=== PATIENT | female | born 1990 | race African-American/Black ===

== ENCOUNTER → 2020-05-17 11:03 | Outpatient (CLI) | payer OTHER, SELFPAY ==
[2020-05-17 13:14] LABS: HCG Quantitative /Beta subunit 11434 mIU/mL
== END ==
PROVIDERS: Referring Provider Specialist; Visit Provider Specialist
DX: O20.9 Hemorrhage in early pregnancy, unspecified (principal)
CPT/HCPCS: 36415; 84702

== ENCOUNTER → 2020-06-17 17:19 | Outpatient (CLI) | payer OTHER, SELFPAY ==
[2020-06-17 18:01] LABS: Add Manual Diff / Slide Review NO; Basophils Absolute Auto 0 /uL (0-100); Basophils Percent Auto 0.4 % (0-2); Eosinophils Absolute Auto 100 /uL (0-450); Eosinophils Percent Auto 1.5 % (2-4); Hematocrit 33.6 % (36-46); Hemoglobin 11.2 g/dL (12.0-16.0); Lymphocytes Absolute Auto 1800 /uL (1100-4500); Lymphocytes Percent Auto 20.7 % (25-40); Mean Corpuscular HGB Conc 33.3 % (30-36); Mean Corpuscular Hemoglobin 26.8 PG (26-34); Mean Corpuscular Volume 80.5 fL (80-100); Monocytes Absolute Auto 600 /uL (0-900); Monocytes Percent Auto 7.3 % (3-14); Neutrophils Absolute Auto 6000 /uL (1500-7000); Neutrophils Percent Auto 70.1 % (50-75); Platelet Count 292 X10^3/uL (150-400); Red Blood Cell Count 4.17 X10^6/uL (4.0-5.2); Red Cell Distribution Width 13.6 % (11.6-14.8); White Blood Cell Count 8.5 X10^3/uL (4.5-11.0)
[2020-06-17 18:12] LABS: Appearance Urine UA CLEAR; Bilirubin Urine UA NEGATIVE (NEGATIVE); Color Urine UA YELLOW; Glucose Urine UA NEGATIVE (Negative); Hemoglobin A1C% w Est Avg Glu 5.3 % (4.0-6.0); Ketones Urine UA NEGATIVE (NEGATIVE); Leukocyte Esterase Urine UA NEGATIVE (NEGATIVE); Nitrite Urine UA NEGATIVE (Negative); Occult Blood Urine UA NEGATIVE (Negative); Protein Urine UA NEGATIVE (Negative); Urobilinogen Urine UA 0.2 E.U./dL (0.2)
[2020-06-17 18:16] LABS: Glucose 103 mg/dL (70-100)
[2020-06-17 18:50] LABS: Hepatitis B Surface Antigen NEGATIVE s/c (NEGATIVE); Rubella Antibody IgG 16.9 IU/mL (>15)
[2020-06-17 19:17] LABS: HIV 1 & 2 Ab/Ag 4th Gen Combo NEGATIVE (NEGATIVE); Hep C Virus Ab w/Reflex Quant NEGATIVE s/c (NEGATIVE)
[2020-06-18 08:13] LABS: RPR Screen Non Reactive (Non Reactive); Varicella IgG Antibody 522 index (Immune >165)
== END ==
PROVIDERS: Referring Provider Specialist; Visit Provider Specialist
DX: Z34.01 Encounter for supervision of normal first pregnancy, first trimester (principal)
CPT/HCPCS: 36415; 80055; 81003; 82947; 83036; 86787; 86803; 86850; 86900; 86901; 87086; 87389

== ENCOUNTER → 2020-08-30 14:47 | Outpatient (CLI) | payer OTHER, SELFPAY ==
--- NOTE | 2020-08-30 14:50 | DI.US.S_ITS ---
PROCEDURE: US OB >= 14 WEEKS FETUS INDICATIONS: ANATOMY OUTSIDE/PRIOR DATING DATA: Last menstrual period (LMP): 04/03/2020 . LMP-based estimated date of delivery (ASIF): 01/08/2021 . First dating scan (date and location): 08/30/2020 . Estimated date of delivery (ASIF) from first dating scan: 01/09/2021 . TECHNIQUE: Real-time scanning was performed of the fetus, with image documentation and biometric measurements. Endovaginal scanning: No COMPARISON: [facility], , OB <= 14 WEEKS FETUS, 06/17/2020, 16:46. FINDINGS: Evaluation is limited by maternal body habitus. General: A single living intrauterine gestation is present. Presentation: Variable. Placenta: Placental position is posterior , without previa. Amniotic fluid index: 19.4 cm, normal range is 5-24 cm. heart rate: 147 beats per minute. Maternal cervical canal: 3.5 cm long. Normal lower limit is 2.5 cm. biometrics: Biparietal diameter: 51 mm; 21 weeks 3 days Head circumference: 189 mm; 21 weeks 1 day Abdominal circumference: 164 mm; 21 weeks 3 days Femur length: 34 mm; 20 weeks 5 days Estimated gestational age from initial scan: 21 weeks 2 days Composite gestational age from present scan: 21 weeks 1 day Estimated weight and percentile: 401 g, which is at the 36th percentile for gestational age Measurement variability for biometric dating: +/- 7 days from 14 weeks to 15 weeks 6 days gestation, +/- 10 days from 16 weeks to 21 weeks 6 days gestation, +/- 2 weeks from 22 weeks to 27 weeks 6 days gestation, +/- 3 weeks for 28 weeks gestation or later. weight reference: 4500 g or EFW >90/95% is considered macrosomia or large for gestational age. EFW <10% is small for gestational age. EFW 5% or less is considered intra-uterine growth restriction. Anatomic survey: Neuro: Ventricles are non-dilated at less than 10 mm. Cisterna magna and cerebellum are not well seen. Nuchal skin fold: Not well seen Face: Nose and lips, facial profile are normal. Spine: Cervical spine is not well seen. Heart: Not well seen Diaphragm: Diaphragm is intact. Stomach: Left-sided stomach is present. Kidneys: No hydronephrosis. Normal is less than 5 mm in 2nd trimester, less than 7 mm in 3rd trimester. Cord: 3-vessel cord has orthotopic insertion. Bladder: Normal in size. Extremities: All 4 extremities identified. IMPRESSION: 1. Single living intrauterine gestation. 2. Limited normal survey of anatomy. Dictated by: Suad Joyce M.D. on 08/30/2020 at 16:39 Approved by: Suad Joyce M.D. on 08/30/2020 at 16:51
== END ==
PROVIDERS: Referring Provider Specialist; Visit Provider Specialist
DX: Z34.02 Encounter for supervision of normal first pregnancy, second trimester (principal); Z3A.21 21 weeks gestation of pregnancy
CPT/HCPCS: 76811

== ENCOUNTER → 2020-09-12 14:36 | Outpatient (CLI) | payer OTHER, SELFPAY ==
--- NOTE | 2020-09-12 14:37 | DI.US.S_ITS ---
PROCEDURE: US OB FOLLOW UP INDICATIONS: FOLLOW UP INCOMPLETE ANATOMY SCAN OUTSIDE/PRIOR DATING DATA: Last menstrual period (LMP): 04/03/2020 LMP-based estimated date of delivery (ASIF): 01/08/2021 First dating scan (date and location): 08/30/2020 Estimated date of delivery (ASIF) from first dating scan: 01/09/2021 TECHNIQUE: Real-time scanning was performed of the fetus, with image documentation. Endovaginal scanning: No COMPARISON: [facility], OB >= 14 WEEKS FETUS, 08/30/2020, 15:07. FINDINGS: A single living intrauterine gestation is present. Presentation: Cephalic. Placenta: Placental position is posterior , without previa. Amniotic fluid index: 17.8 cm, normal range is 5-24 cm. heart rate: 158 beats per minute. Maternal cervical canal: 5 cm long. Normal lower limit is 2.5 cm. Estimated gestational age from initial scan: 23 weeks 0 days . Survey of anatomy currently includes normal nuchal region/neck, cisterna magna/cerebellum, 4 chamber heart view, and left and right ventricular outflow tracts. IMPRESSION: 1. Single living intrauterine gestation. 2. Normal limited survey of anatomy. Dictated by: Suad Joyce M.D. on 09/12/2020 at 15:01 Approved by: Suad Joyce M.D. on 09/12/2020 at 15:03
== END ==
PROVIDERS: Referring Provider Specialist; Visit Provider Specialist
DX: Z36.2 Encounter for other antenatal screening follow-up (principal); Z3A.23 23 weeks gestation of pregnancy
CPT/HCPCS: 76816

== ENCOUNTER → 2020-09-29 10:50 | Outpatient (CLI) | payer OTHER, SELFPAY ==
[2020-09-29 12:46] LABS: Hematocrit 35.3 % (36-46); Hemoglobin 11.3 g/dL (12.0-16.0)
[2020-09-29 13:10] LABS: GTT (PREG) 1 Hour PP 50gm Dose 109 mg/dL (76-139)
== END ==
PROVIDERS: Referring Provider Specialist; Visit Provider Specialist
DX: O26.899 Other specified pregnancy related conditions, unspecified trimester (principal); Z67.91 Unspecified blood type, Rh negative; Z3A.26 26 weeks gestation of pregnancy
CPT/HCPCS: 36415; 82950; 85014; 85018; 86850

== ENCOUNTER 2020-12-15 14:17 | Outpatient (CLI) | payer OTHER, SELFPAY ==
--- NOTE | 2020-12-15 15:26 | PM.OBTRLD ---
Visit Information Visit Information Date of evaluation: 12/15/20 Primary OB Provider: Susana Whiting Reason for Evaluation: Yes non-stress test non-stress test reason: other (Lower abdominal pain rule out labor) [facility] Medical History (Updated 12/15/20 @ 15:27 by Susana Whiting MD) Acid reflux Anxiety (~2019) Asthma (~1995) Bipolar 1 disorder (~2019) Bronchitis Depression (~2019) Ear infection Eczema (~2000) Generalized headaches History of being hospitalized Irregular menstrual cycle Manic episode Neutropenia Nexplanon removal (~03/03/20) Ovarian cyst Painful menstrual periods PTSD (post-traumatic stress disorder) Seizures UTI (urinary tract infection) Surgical History (Updated 06/14/20 @ 18:51 by Lisa Norris) Nexplanon insertion (~2015) No history of previous surgery Family History (Updated 06/14/20 @ 18:54 by Lisa Norris) Mother Obesity Cardiac anomaly History of heart disease Hypertension Hyperlipidemia Mental health problem Father Family estrangement Grandmother Cardiac anomaly Obesity History of heart disease Hyperlipidemia Hypertension Grandfather Family estrangement Grandmother Family estrangement Grandfather Family estrangement Family/Other Mental health problem Sister ADHD Family/Other Twin Sister Mental health problem Social History marital status: household members: spouse lives independently: Yes pets and animals: Yes (X 3 dogs) education level: college occupational status: unemployed current occupational exposures/hazards: No 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; 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; 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; [employer]; 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 Patient reassured OB Disposition: home
== END 2020-12-15 15:25 | disposition home or self-care (01) ==
LOC: LABOR 14:45 → OB 12-20 01:30
PROVIDERS: Referring Provider Specialist; Visit Provider Specialist
DX: O26.893 Other specified pregnancy related conditions, third trimester (principal); R10.30 Lower abdominal pain, unspecified; Z3A.36 36 weeks gestation of pregnancy
CPT/HCPCS: 59025; 87653; G0378; G0379

== ENCOUNTER 2021-01-11 11:58 | Outpatient (CLI) | payer OTHER, SELFPAY | END 2021-01-11 12:35 | disposition home or self-care (01) | LOC: OB 01-17 03:45 | PROVIDERS: Referring Provider Specialist; Visit Provider Specialist | DX: O48.0 Post-term pregnancy (principal); Z3A.40 40 weeks gestation of pregnancy | CPT/HCPCS: 59025; G0378; G0379 ==

== ENCOUNTER 2021-01-15 10:05 | Outpatient (CLI) | payer OTHER, SELFPAY ==
--- NOTE | 2021-01-15 10:24 | PM.OBTRLD ---
Visit Information Visit Information Date of evaluation: 01/15/21 Primary OB Provider: Susana Whiting On-call OB Provider: Meli Amaro Reason for Evaluation: Yes non-stress test non-stress test reason: other (post-dates) Vital Signs Vital Signs: BP 115/69mmHg, HR 83bpm, T 36.3C Temporal PFSH Medical History Acid reflux Anxiety (~2019) Asthma (~1995) Bipolar 1 disorder (~2019) Bronchitis Depression (~2019) Ear infection Eczema (~2000) Generalized headaches History of being hospitalized Irregular menstrual cycle Manic episode Neutropenia Nexplanon removal (~03/03/20) Ovarian cyst Painful menstrual periods PTSD (post-traumatic stress disorder) Seizures UTI (urinary tract infection) Surgical History Nexplanon insertion (~2015) No history of previous surgery Family History Mother Obesity Cardiac anomaly History of heart disease Hypertension Hyperlipidemia Mental health problem Father Family estrangement Grandmother Cardiac anomaly Obesity History of heart disease Hyperlipidemia Hypertension Grandfather Family estrangement Grandmother Family estrangement Grandfather Family estrangement Family/Other Mental health problem Sister ADHD Family/Other Twin Sister Mental health problem Social History marital status: household members: spouse lives independently: Yes pets and animals: Yes (X 3 dogs) education level: college occupational status: unemployed current occupational exposures/hazards: No 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; 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; 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; [employer]; 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; 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: 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 F/U for IOL 01/17/21, as scheduled. OB Disposition: home
== END 2021-01-15 11:05 | disposition home or self-care (01) ==
LOC: OB 01-17 03:50
PROVIDERS: Referring Provider Nurse Practitioner Obstetrics & Gynecology; Visit Provider Nurse Practitioner Obstetrics & Gynecology
DX: O48.0 Post-term pregnancy (principal); Z3A.41 41 weeks gestation of pregnancy
CPT/HCPCS: 59025; G0378; G0379

== ENCOUNTER 2021-01-17 19:00 | Inpatient (IN) | payer OTHER, SELFPAY ==
[2021-01-17 21:37] VITALS: BP 112/71
[2021-01-17] MEDS: DINOPROSTONE VAG (CERVIDIL) 10 MG VAG (22:30)
[2021-01-17 23:52] LABS: Add Manual Diff / Slide Review NO; Basophils Absolute Auto 0 /uL (0-100); Basophils Percent Auto 0.5 % (0-2); Eosinophils Absolute Auto 0 /uL (0-450); Eosinophils Percent Auto 0.4 % (2-4); Hematocrit 35.2 % (36-46); Hemoglobin 11.5 g/dL (12.0-16.0); Lymphocytes Absolute Auto 1700 /uL (1100-4500); Lymphocytes Percent Auto 17.2 % (25-40); Mean Corpuscular HGB Conc 32.6 % (30-36); Mean Corpuscular Hemoglobin 26.1 PG (26-34); Mean Corpuscular Volume 80.1 fL (80-100); Monocytes Absolute Auto 800 /uL (0-900); Monocytes Percent Auto 8.6 % (3-14); Neutrophils Absolute Auto 7100 /uL (1500-7000); Neutrophils Percent Auto 73.3 % (50-75); Platelet Count 281 X10^3/uL (150-400); Red Blood Cell Count 4.39 X10^6/uL (4.0-5.2); Red Cell Distribution Width 15.8 % (11.6-14.8); White Blood Cell Count 9.7 X10^3/uL (4.5-11.0)
[2021-01-18 00:02] LABS: COVID19 -Nasal RAPID Negative (Negative)
[2021-01-18] MEDS: ZOLPIDEM 5 MG TABLET PO (01:00)
[2021-01-18] MEDS: hydrOXYzine pamoate 25 MG CAPSULE PO (01:03)
--- NOTE | 2021-01-18 08:03 | PM.OBHP.1 ---
OB HPI Date/Time Date of admission: 01/17/21 Date Patient Seen: 01/18/21 Time Patient Seen: 08:03 History of Present Condition Chief complaint: : 1 Para: 0 Estimated Date of Delivery: 01/08/21 Estimated Gestational Age (weeks): 41 Narrative: Geneva Rachel is a 30 year old female admitted for postdates induction Indications Indication for induction OB: post dates History of Present care: good care, initiated at week # (6), number of visits (16) and pounds weight gain (34) Ultrasounds: normal mid trimester US Obstetrical complications: none Medical complications: none Preadmission Labs Blood type: 0 (-) negative -: Antibody screen: negative, GBS status: negative, HBsAG: negative, HIV: negative and RPR/VDLR: negative -: Chlamydia screen: not detected and Gonorrhea screen: not detected -: Rubella: immune and Varicella: immune HCAB: negative 1 hr GTT: 109 Evaluation Evaluation Baseline heart rate: 130 Variability: Moderate (11-25) monitor accelerations: Present Monitor Decelerations: Periodic Contraction Frequency (minutes): 5 Uterine Contraction Intensity: Mild Category of Tracing: Reactive Status: Category ll Dilation (cm): 0 Effacement (%): 60 Dilation: Closed Effacement: 60-70% station: -1 Position of cervix: mid Consistency: medium Latif score: 6 PFSH Medical History Acid reflux Anxiety (~2019) Asthma (~1995) Bipolar 1 disorder (~2019) Bronchitis Depression (~2019) Ear infection Eczema (~2000) Generalized headaches History of being hospitalized Irregular menstrual cycle Manic episode Neutropenia Nexplanon removal (~03/03/20) Ovarian cyst Painful menstrual periods PTSD (post-traumatic stress disorder) Seizures UTI (urinary tract infection) Surgical History Nexplanon insertion (~2015) No history of previous surgery Family History Mother Obesity Cardiac anomaly History of heart disease Hypertension Hyperlipidemia Mental health problem Father Family estrangement Grandmother Cardiac anomaly Obesity History of heart disease Hyperlipidemia Hypertension Grandfather Family estrangement Grandmother Family estrangement Grandfather Family estrangement Family/Other Mental health problem Sister ADHD Family/Other Twin Sister Mental health problem Social History marital status: household members: spouse lives independently: Yes pets and animals: Yes (X 3 dogs) education level: college occupational status: unemployed current occupational exposures/hazards: No 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; 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; 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; [employer]; 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; 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/hindu: Gnosticism special huong needs: No Smoking Status: Never smoker second hand exposure: No (growing up - not lately) alcohol intake: former substance use type: does not use and marijuana Meds Home Medications and Allergies Home Medications Medication Instructions Recorded Confirmed Type clonidine HCl 0.2 mg tablet 0.2 mg PO BEDTIME 05/16/20 01/05/21 History prenat.vits,mary,jue-eent-odjcj 1 tab PO DAILY 05/16/20 01/05/21 History folate PO 06/03/20 01/05/21 History albuterol sulfate 90 mcg/actuation 2 puff INHALATION Q6H PRN 06/06/20 01/05/21 History aerosol inhaler lamotrigine 100 mg tablet 150 mg PO DAILY tab 12/29/20 01/05/21 History Allergies Allergy/AdvReac Type Severity Reaction Status Date / Time amoxicillin Allergy Severe Anaphylaxis Verified 05/19/20 10:40 Penicillins Allergy Severe Anaphylaxis Verified 05/19/20 10:40 Sulfa (Sulfonamide Allergy Unknown throat Verified 05/19/20 10:40 Antibiotics) swelling, hives lavender (Lavandula AdvReac Intermediate Itchy Verified 06/06/20 10:31 angustifolia) throat and rash to skin Review of Systems Review of Systems Narrative: Patient denies headaches, scotomata, epigastric pain. Good movement. No leakage of fluid. OB Exam Narrative Exam Narrative: Blood pressure 126/53, pulse 71, temperature 36.2? HEENT exam within normal limits. Lungs are clear to auscultation percussion. Heart is regular rate and rhythm no S3-S4 murmurs. Abdomen is soft, nontender. Fetus is vertex. Extremities without edema and nontender Objective Labs Result Diagrams: 01/17/21 21:35 Labs: Laboratory Results - last 24 hr 11/30/21 11/30/21 11/30/21 21:35 21:35 21:35 WBC 9.7 RBC 4.39 Hgb 11.5 L Hct 35.2 L MCV 80.1 MCH 26.1 MCHC 32.6 RDW 15.8 H Plt Count 281 Neut % (Auto) 73.3 Lymph % (Auto) 17.2 L [place] % (Auto) 8.6 Eos % (Auto) 0.4 L Baso % (Auto) 0.5 Neut # (Auto) 7100 H Lymph # (Auto) 1700 [place] # (Auto) 800 Eos # (Auto) 0 Baso # (Auto) 0 SARS-CoV-2 (PCR) Negative Antibody Screen Negative Assessment and Plan Assessment and Plan Assessment and Plan narrative: 41 3/7 weeks gestation admitted for induction. Patient received the Cervidil overnight. We will start Pitocin today.
[2021-01-18] MEDS: LACTATED RINGERS 1,000 ML 100 ML IV (10:24)
[2021-01-18] MEDS: OXYTOCIN PREMIX 30 UNIT/500 ML PLAST..BAG IV (10:24)
--- NOTE | 2021-01-18 16:33 | PM.OBPNLAB ---
Date/Time Date Patient Seen: 01/18/21 Time Patient Seen: 16:34 Pain Control Pain control: tolerating well Pelvic Exam Dilation (cm): 0 Effacement (%): 80 station: -1 Contractions Contractions on admission: regular Monitor mode: External Pitocin rate (mU/min): 24 Contraction frequency (min): 3 Contraction duration (min): 1 Contraction pattern: Regular Contraction intensity: Moderate Status status: Category l Heart Rate Baseline: 130 Monitor Accelerations: Present Monitor Decelerations: Absent Monitor Variability: Moderate Assessment and Plan Assessment: induction ongoing Comments: Patient with no significant change after over 6 hours of Pitocin on 24 units. Options reviewed with the patient. We will stop the Pitocin and retry Cervidil tonight and restart Pitocin in a.m. if not in active labor.
[2021-01-18] MEDS: DINOPROSTONE VAG (CERVIDIL) 10 MG VAG (20:26)
[2021-01-19] MEDS: LORATADINE 10 MG TABLET PO (06:56)
--- NOTE | 2021-01-19 08:45 | PM.OBPNLAB ---
Date/Time Date Patient Seen: 01/19/21 Time Patient Seen: 08:00 Pain Control Pain control: tolerating well Pelvic Exam Dilation (cm): 0 Effacement (%): 80 station: -1 Contractions Monitor mode: External Contraction frequency (min): 8 Contraction pattern: Regular Contraction intensity: Mild Status status: Category l Heart Rate Baseline: 140 Monitor Accelerations: Present Monitor Decelerations: Absent Monitor Variability: Moderate Assessment and Plan Assessment: induction ongoing Comments: Will restart Pitocin
[2021-01-19] MEDS: OXYTOCIN PREMIX 30 UNIT/500 ML PLAST..BAG IV (08:52)
[2021-01-19] MEDS: LACTATED RINGERS 1,000 ML 100 ML IV (11:58)
[2021-01-19] MEDS: SODIUM CHLORIDE NASAL SPRAY 1 SPRAY NASAL (17:48)
--- NOTE | 2021-01-19 19:17 | PM.AN.REGBLK ---
Regional Block Pre-procedure Procedure: Continuous Lumbar Epidural for L&D Attending OB provider: Susana Whiting PMH/ROS narrative: post dates induction, no complications with . PMH asthma, seizure, PTSD, anxiety, BMI 50 ASA Class: III Labs: Hct 35.2 % (36-46) L 01/17/21 21:35 Plt Count 281 X10^3/uL (150-400) 01/17/21 21:35 Medications: Current Medications Generic Name Dose Route Start Last Admin Trade Name Freq PRN Reason Stop Dose Admin Acetaminophen 650 mg 01/17/21 21:38 Acetaminophen 325 Mg Tablet PO Q4HR PRN Fever/Mild Pain (1-3) Calcium Carbonate 1,000 mg 01/17/21 21:38 Calcium Carbonate 500 Mg Tab PO Q2H PRN Dyspepsia Carboprost Tromethamine 250 mcg 01/17/21 23:41 Carboprost 250 Mcg/Ml Ampul IM Q90M PRN Bleeding Clonidine HCl 0.2 mg 01/18/21 21:00 Clonidine 0.1 Mg Tablet PO BEDTIME DAVINA Diphenhydramine HCl 25 mg 01/19/21 19:16 Diphenhydramine 50 Mg/Ml Vial IV Q10M PRN Pruritis Fentanyl 100 mcg 01/17/21 23:41 Fentanyl 100 Mcg/2 Ml Inj IV Q1H PRN Pain, Severe (7-10) Oxytocin/Lactated Ringer's 30 unit in 500 mls @ 3 mls/hr 01/17/21 21:45 01/19/21 08:52 Oxytocin Premix IV 3 milliunit/min TITRATE DAVINA 3 mls/hr Administration Protocol 3 MILLIUNIT/MIN Tranexamic Acid 1,000 mg/ 100 mls @ 200 mls/hr 01/17/21 23:41 Sodium Chloride IV NOW PRN Bleeding Lactated Ringer's 1,000 mls @ 100 mls/hr 01/17/21 23:45 01/19/21 11:58 Lactated Ringers IV 100 mls/hr CONT DAVINA Administration Oxytocin/Lactated Ringer's 30 unit in 500 mls @ 3 mls/hr 01/19/21 08:37 Oxytocin Premix IV TITRATE DAVINA Protocol 3 MILLIUNIT/MIN FENT 2MCG/ML BUPIV 0.125% EPI 200 mcg in 100 mls @ 6 mls/hr 01/19/21 19:30 Fentanyl/Bupiv/Ns 2mcg/Ml - 0.125% EPIDURAL CONT DAVINA Lamotrigine 150 mg 01/18/21 09:00 Lamotrigine 100 Mg Tablet PO DAILY DAVINA Loratadine 10 mg 01/20/21 06:00 Loratadine 10 Mg Tablet PO 01/20/21 06:01 NOW ONE Misoprostol 1,000 mcg 01/17/21 23:41 Misoprostol 200 Mcg Tablet NC NOW PRN Bleeding Misoprostol 400 mcg 01/17/21 23:41 Misoprostol 200 Mcg Tablet SL NOW PRN Bleeding Misoprostol 800 mcg 01/17/21 23:41 Misoprostol 200 Mcg Tablet NC NOW PRN Bleeding Nalbuphine HCl 2.5 mg 01/19/21 19:16 Nalbuphine 20 Mg/Ml Ampul IV Q10M PRN Pruritis Naloxone HCl 0.2 mg 01/17/21 23:41 Naloxone 0.4 Mg/Ml Vial IV Q2MIN PRN Opiate Reversal Ondansetron HCl 4 mg 01/17/21 23:41 Ondansetron 4 Mg/2 Ml Inj IV Q4HR PRN Nausea And Vomiting Oxytocin 10 unit 01/17/21 23:41 Oxytocin 10 Unit/Ml Vial IM NOW PRN Bleeding Sodium Chloride 1 spray 01/19/21 17:29 01/19/21 17:48 Sodium Chloride Nasal [place] NASAL 1 spray PRN PRN Administration Congestion Allergies: Allergies Allergy/AdvReac Type Severity Reaction Status Date / Time amoxicillin Allergy Severe Anaphylaxis Verified 05/19/20 10:40 Penicillins Allergy Severe Anaphylaxis Verified 05/19/20 10:40 Sulfa (Sulfonamide Allergy Unknown throat Verified 05/19/20 10:40 Antibiotics) swelling, hives lavender (Lavandula AdvReac Intermediate Itchy Verified 06/06/20 10:31 angustifolia) throat and rash to skin Procedure Insertion date: 01/19/21 Insertion time: 19:30 Prep/Local: betadine x3 and 1% lidocaine Interspace: L3-4 Patient position: sitting Needle: 18 gauge OpenDoors.sutead (CSE: 27g Pencan through Hustead, clear CSF, 1mL 0.25% MPF bupiv) Loss of resistance with: saline DILCIA at (cm): 8 Catheter placed at SKIN (cm): 15 Catheter in SPACE (cm): 7 Insertion: No CSF, No Blood, No Paresthesia with insertion, No Paresthesia with injection and No Test dose reaction Initial Medications TEST DOSE time: 19:35 TEST DOSE: 1.5% lidocaine with epinephrine 1:200k (mL): 3 BOLUS DOSE time: 20:20 BOLUS DOSE (mL): 8 BOLUS DOSE med: other (infusate) Infusion Initial rate (mL/hr): 8 Subsequent interventions: To OR 23:24. Lidocaine boluses to epidural with good block. Post-procedure Anesthesia time START: 19:24 Anesthesia time END: 23:24 Post-procedure Anesthesia Assessment: Yes CV function: HR/BP stable, Yes Resp function: RR/sat/airway adequate, Yes Post-op hydration adequate, Yes Pain control adequate, No Nausea & vomiting absent, Yes Mental status appropriate and No Anesthesia complications
[2021-01-19 20:46] VITALS: BP 124/75; PULSE 72
[2021-01-19] MEDS: cloNIDine 0.1 MG TABLET 0.2 MG PO (20:46)
--- NOTE | 2021-01-19 22:10 | PM.OBPNLAB ---
Date/Time Date Patient Seen: 01/19/21 Time Patient Seen: 22:10 Pain Control Pain control: epidural Pelvic Exam Dilation (cm): 2 Effacement (%): 100 station: -1 Amniotic membrane status: Ruptured (Light to medium meconium) Contractions Contractions on admission: regular Monitor mode: Internal Pitocin rate (mU/min): 9 Contraction frequency (min): 6 Contraction pattern: Regular Contraction intensity: Moderate Intrauterine tone measurement: 60 Status status: Category ll Heart Rate Baseline: 140 Monitor Accelerations: Present Monitor Decelerations: Variable Monitor Variability: Moderate Assessment and Plan Assessment: induction ongoing Comments: Internals placed to document adequate contractions with possible first stage arrest
--- NOTE | 2021-01-19 23:03 | PM.PREOP ---
Pre-operative Note COVID-19 COVID-19 status: Negative Result date/Date tested (Pos, Neg/Pending): 01/17/21 Interval Note History & Physical reviewed/Exam performed by Physician: Yes Changes to H&P: Yes H&P completed within 30 days and has changed as indicated here:: 1st stage arrest with category 2 heart rate tracing
--- NOTE | 2021-01-19 23:04 | PM.OBPNLAB ---
Date/Time Date Patient Seen: 01/19/21 Time Patient Seen: 23:04 Pain Control Pain control: epidural Pelvic Exam Dilation (cm): 2 Effacement (%): 100 station: -1 Amniotic membrane status: Ruptured (Light to medium meconium) Contractions Contractions on admission: regular Monitor mode: Internal Contraction frequency (min): 5 Contraction pattern: Regular Contraction intensity: Strong/Firm Intrauterine tone measurement: 60 Status status: Category ll Heart Rate Baseline: 140 Monitor Accelerations: Present Monitor Decelerations: Recurrent Monitor Variability: Moderate Assessment and Plan Plan: Comments: Patient with adequate contractions with category 2 tracing and no significant change in the cervix. Examination the head is not well engaged in the pelvis. Decision was made to proceed with section. Consent form for the section was reviewed with the patient. Risk of infection, bleeding enough to require blood transfusion, damage to internal structures such as bowel, bladder, ureters, reaction to medication or anesthesia. Consent form signed and questions answered. Patient states she keloids easily and asked for anything that could be done to decrease keloid formation.
[2021-01-19] MEDS: CLINDAMYCIN 900 MG/50 ML PIGGYBACK 50 MG IV (23:27)
[2021-01-19] MEDS: ACETAMINOPHEN IV 1,000 MG/100 ML VIAL 400 MG IV (23:30)
--- NOTE | 2021-01-19 23:47 | SUR.OPER ---
Supine on Padded OR bed, head on pillow, safety belt at thigh, arms secured on padded arm boards at <90 degrees abduction. Bump under right buttock. Legs uncrossed with pillow under knees, gel pad to heels, tape over blanket to lower legs.
[2021-01-20] MEDS: TRIAMCINOLONE 50 MG/5 ML VIAL INJ (00:16)
[2021-01-20 00:43] VITALS: BP 103/58; PULSE 77; RESP 12; TEMP 36.5; O2SAT 99
[2021-01-20 00:52] VITALS: BP 127/69; PULSE 64; RESP 10; O2SAT 99
--- NOTE | 2021-01-20 00:53 | PM.OBCS.1 ---
Operative Date/Time/Diagnoses Date of procedure: 01/19/21 Time of procedure: 23:45 Pre-op diagnosis: 1st stage arrest Post-op diagnosis: same Procedure & Clinicians Procedure: Primary low-transverse section Same procedure as scheduled: Yes Indications: 1st stage arrest with intolerance of labor Surgeon: Susana Whiting Weight Engineer: Bhavna Colon Anesthesia Type: Epidural Operative Notes Findings: Normal tubes, ovaries, uterus. Viable male weighing 8 lb 1 oz with Apgars of 8 and 9 Closure Type: primary Specimen(s): cord blood Intraoperative meds administered: Acetaminophen, Duramorph, Ketorolac and Pitocin Applied: Catheter (Nagel) Estimated Blood Loss (mL): 400 Blood products transfused: none Procedure in detail: The patient was brought to the operating room where she underwent bolus of her epiduralfor anesthesia. She was placed in a supine position with a left lateral tilt. A Nagel catheter was in place. Pulsatile stockings were placed and functional throughout the case. 900 mg of clindamycin was given IV prior to the incision. Warming was in place. The patient was prepped and draped in usual sterile fashion. A low transverse incision was made with a scalpel and the incision was carried down to the fascial layer which was incised transversely with scissors. The learning and development assistant did her side of the incision. The midline attachments are superiorly and inferiorly. Some bleeding was controlled Bovie. The rectus muscles were in the midline and the peritoneal incision was made with no damage to internal structures. The peritoneum was incised and superiorly and inferiorly. The incision was stretched with the surgeon and learning and development assistant placing traction. Bladder blade was placed and a bladder flap was developed and the bladder held away from the lower uterine segment. An incision was made in the uterus with the scalpel and the incision was extended with stretching. The head was elevated out of the abdomen and with fundal pressure by the learning and development assistant the baby was delivered. The infant was bulb suctioned for clear fluid and handed off to the warmer. Cord blood was collected. The placenta delivered spontaneously with traction. The uterus was cleaned with clean laps. The uterine incision was closed in 2 layers of 0 chromic suture the first a running locking layer the second an imbricating layer. The learning and development assistant was helping to expose the incision. The bladder peritoneum was repaired with 2-0 Vicryl suture. The gutters were cleaned of any remaining fluids and ovaries and tubes were observed to be normal. Adequate hemostasis was noted. The perineum was closed with 2-0 Vicryl suture. The fascia layer was closed with 0 Vicryl suture with 2 stitches. The learning and development assistant repairing half the incision with helping to retract and expose the incision for the other half. The incision was irrigated and adequate hemostasis noted. The incision was closed with interrupted 3-0 Vicryl sutures and then a subcuticular stitch of 4-0 Vicryl suture. Steri-Strips were placed. The uterus was massaged to remove any clots. The patient went to recovery room in good condition. Counts of instruments and sponges were correct. Dr. Colon was present throughout the case to assist with retraction, fundal pressure to deliver the infant, and suturing half the fascia. Complications: none [place] Baby 1: Gender: Male Presentation: vertex Position: Right Occiput Anterior Placental Delivery Description: Expressed Cord Vessel Description: 3 Vessels score (1 min): 8 score (5 min): 9 weight: 8 lb 1 oz Post-operative Condition: stable Disposition: other ( center) Aftercare: routine postop
[2021-01-20] MEDS: LACTATED RINGERS 1,000 ML 100 ML IV ×2 (00:58→01:45)
[2021-01-20] MEDS: diphenhydrAMINE 25 MG TABLET PO (05:03)
[2021-01-20] MEDS: DOCUSATE 100 MG CAPSULE 200 MG PO (08:46)
[2021-01-20 08:49] VITALS: TEMP 36.5
[2021-01-20] MEDS: KETOROLAC 30 MG/ML VIAL IV ×3 (08:49→20:55)
[2021-01-20] MEDS: LANOLIN OINT 7 GM 1 APPLIC TOP (09:07)
[2021-01-20 09:11] VITALS: TEMP 36.5
[2021-01-20] MEDS: OXYCODONE IR 5 MG TABLET PO ×3 (09:11→19:30)
[2021-01-20] MEDS: diphenhydrAMINE 50 MG/ML VIAL 25 MG IV ×2 (09:24→14:19)
[2021-01-20] MEDS: NALBUPHINE 20 MG/ML AMPUL 5 MG IV ×2 (10:07→17:43)
[2021-01-20 14:21] VITALS: TEMP 36.6
--- NOTE | 2021-01-20 14:56 | PM.OBPN.1 ---
Subjective - OB Subjective Patient comments: incisional pain baby status: doing well feeding status: exclusively breast feeding Date Patient Seen: 01/20/21 Time Patient Seen: 13:00 Interval history: Patient is postoperative day 0 primary low-transverse section for for stage arrest. She has not been able to sleep. She will try to get up and ambulate later today. Her pain is under control. She denies any nausea. Exam Vital Signs (past 8 hours): Blood pressure 132/74, pulse 90, temperature 97.8? 01/20/21 08:49 01/20/21 09:11 01/20/21 14:21 Temperature 97.7 F 97.7 F 97.8 F Oxygen Delivery Method Room Air Narrative Exam Narrative: Abdomen is soft, nontender. Uterus is firm, just above the umbilicus and nontender. Dressing is clean, dry, intact. Lochia is moderate. Extremities without edema and nontender. Objective Labs Result Diagrams: 01/17/21 21:35 Assessment & Plan Plan day: 0 plan OB: routine postop care Comments: Patient will try to get up out of bed later today. Time Spent With Patient Time: Total time spent is greater than 50% in coordination of care (as documented) at patient's floor/unit and/or counseling patient: Time with patient: less than 15 minutes
[2021-01-20 15:25] VITALS: TEMP 36.6
[2021-01-20] MEDS: OXYCODONE IR 5 MG TABLET 10 MG PO (23:26)
[2021-01-21] MEDS: OXYCODONE IR 5 MG TABLET PO ×2 (03:33→14:18)
[2021-01-21] MEDS: IBUPROFEN 600 MG TABLET PO ×2 (03:34→11:20)
[2021-01-21 07:03] LABS: Add Manual Diff / Slide Review NO; Basophils Absolute Auto 0 /uL (0-100); Basophils Percent Auto 0.3 % (0-2); Eosinophils Absolute Auto 100 /uL (0-450); Eosinophils Percent Auto 0.5 % (2-4); Hematocrit 30.6 % (36-46); Lymphocytes Absolute Auto 1800 /uL (1100-4500); Lymphocytes Percent Auto 16.7 % (25-40); Mean Corpuscular HGB Conc 32.8 % (30-36); Mean Corpuscular Hemoglobin 26.4 PG (26-34); Mean Corpuscular Volume 80.3 fL (80-100); Monocytes Absolute Auto 1000 /uL (0-900); Monocytes Percent Auto 9.6 % (3-14); Neutrophils Absolute Auto 7800 /uL (1500-7000); Neutrophils Percent Auto 72.9 % (50-75); Platelet Count 251 X10^3/uL (150-400); Red Blood Cell Count 3.81 X10^6/uL (4.0-5.2); Red Cell Distribution Width 15.9 % (11.6-14.8); White Blood Cell Count 10.6 X10^3/uL (4.5-11.0)
[2021-01-21] MEDS: DOCUSATE 100 MG CAPSULE 200 MG PO (08:18)
[2021-01-21] MEDS: ACETAMINOPHEN 325 MG TABLET 650 MG PO ×2 (08:19→14:17)
[2021-01-21] MEDS: OXYCODONE IR 5 MG TABLET 10 MG PO (08:19)
--- NOTE | 2021-01-21 11:40 | P.DS_ITS ---
Discharge Providers Provider Date of admission: 01/17/21 19:00 Discharge Date: 01/21/21 Consults: 01/17/21 23:41 Consult to Anesthesiology Urgent Comment: Consulting Provider: Anesthesiologist Reason for consultation: Epidural Has provider been notified: No 01/20/21 01:32 Consult to [employer] Routine Comment: Discharge provider: Susana Whiting MD Summary Hospital Course Date Patient Seen: 01/21/21 Time Patient Seen: 11:40 Diagnoses: 41 week gestation with induction for postdates, 1st stage arrest, primary low-transverse section Hospital Course: patient was admitted for postdates induction. She received Cervidil followed by Pitocin 2 days in a row. She eventually had strong enough contractions to begin changing her cervix. She received an epidural catheter and had rupture membranes. She did not make any progress past 2 cm and decelerations p rompted primary low-transverse section. Patient is urinating and ambulating. She had a bowel movement. She is breast-feeding well. She is having pain but feels it is tolerable. Peripartum Data Infant Delivery Method: Section complications: none 1: Gender: Male Disposition of : home Discharge Diagnosis (1) Delivery by section using transverse incision of lower segment of uterus: Status: Acute Status at Discharge Cognitive/behavioral status at discharge: oriented Functional status at discharge: independent ambulation Overall status at discharge: patient is progressing back to baseline Time Spent with Patient Time attestation: Total time spent providing and/or coordinating discharge services: Time spent: Less than 30 minutes Objective Labs Result Diagrams: 01/21/21 06:36 Labs: Laboratory Results - last 24 hr 01/21/21 06:36 WBC 10.6 RBC 3.81 L Hgb 10.0 L Hct 30.6 L MCV 80.3 MCH 26.4 MCHC 32.8 RDW 15.9 H Plt Count 251 Neut % (Auto) 72.9 Lymph % (Auto) 16.7 L Hickman % (Auto) 9.6 Eos % (Auto) 0.5 L Baso % (Auto) 0.3 Neut # (Auto) 7800 H Lymph # (Auto) 1800 Hickman # (Auto) 1000 H Eos # (Auto) 100 Baso # (Auto) 0 Exam Vital Signs (past 8 hours): Blood pressure 160/76, pulse 78, temperature 97.8? Oxygen Delivery Method Room Air Narrative Exam Narrative: Abdomen is soft, nontender. Uterus is firm, at U, minimally tender. Dressing is clean, dry, intact. Mild lochia. Extremities with trace edema and nontender. Patient is Rh negative with baby Rh positive so will receive RhoGAM prior to di scharthad. She is rubella immune and received Tdap in the 3rd trimester. Discharge Plan Discharge Plan Patient Disposition: Home Discharge orders & Medications Prescriptions: New docusate sodium 100 mg Capsule 200 mg PO DAILY Qty: 30 0RF ibuprofen 600 mg Tablet 600 mg PO Q6H PRN (Reason: Fever/Mild Pain (1-3)) Qty: 30 0RF oxycodone 5 mg Tablet 5 mg PO Q4H PRN (Reason: Pain, Moderate (4-6)) Qty: 30 0RF Continued prenat.vits,mary,[id number] Tablet 1 tab PO DAILY 0RF clonidine HCl 0.2 mg tablet 0.2 mg PO BEDTIME 0RF lamotrigine 100 mg tablet 150 mg PO DAILY 0RF folate 1 tab PO 0RF albuterol sulfate 90 mcg/actuation HFA aerosol inhaler 2 puff inhalation Q6H PRN (Reason: Labor Induction) 0RF Follow up/Referrals: Susana Whiting MD [Physician] - 01/27/21 1:00 pm (Aquacel removal) Diet/Activity/Treatments Diet: Regular Activity: nothing in vagina or lifting over 20 lb for 6 weeks Skin/Wound/Dressing Care Report to your healthcare provider any signs of infection, such as:: chills, fever and increased pain Dressing: leave dressing on until postop appointment in 1 week
[2021-01-21 13:22] VITALS: BP 127/69; PULSE 64; RESP 10; TEMP 36.6
[2021-01-21] MEDS: RHO(D) IMMUNE GLOBULIN 1,500 UNIT SYRINGE 1500 UNIT IM (16:30)
== END 2021-01-21 17:10 | disposition home or self-care (01) | DRG 788 ==
PROVIDERS: Admitting Provider Specialist; Referring Provider Specialist; Visit Provider Specialist
PROC: 10D00Z1 Extraction of Products of Conception, Low, Open Approach (ICD-10-PCS; CPT 59514; principal; 2021-01-19 23:00)
DX: O62.1 Secondary uterine inertia (principal); O48.0 Post-term pregnancy; Z3A.41 41 weeks gestation of pregnancy; Z37.0 Single live birth; O77.0 Labor and delivery complicated by meconium in amniotic fluid; O99.891 Other specified diseases and conditions complicating pregnancy; J45.909 Unspecified asthma, uncomplicated; K21.9 Gastro-esophageal reflux disease without esophagitis; O99.344 Other mental disorders complicating childbirth; F41.9 Anxiety disorder, unspecified; F31.9 Bipolar disorder, unspecified; F43.10 Post-traumatic stress disorder, unspecified; Z20.822 Contact with and (suspected) exposure to COVID-19
CPT/HCPCS: 01967; 01968; 36415; 59050; 59200; 59510; 59514; 85025; 86850; 86900; 86901; 87635; C9803; A9270; G0379; J0131; J1200; J1885; J2274; J2300; J2590; J2704; J2790; J3010; J3301